=== PATIENT | female | born 1945 | race Caucasian/White ===

== ENCOUNTER 2017-08-16 10:37 | Inpatient (IN) | payer MEDICARE, OTHER ==
[~2017-08-16 10:37] MED LIST: Dermabond Prineo 1 Tube TOP ONE
[2017-08-16] MEDS: Lactated Ringers 1,000 ML IV SCH ×2 (11:33→23:34)
[2017-08-16] MEDS ORDERED: Midazolam 1 MG/ML 2 ML SDV ONE (11:41)
[2017-08-16] MEDS ORDERED: Propofol 200 MG/20 ML SDV ONE ×2 (11:42→14:56)
[2017-08-16] MEDS ORDERED: fentaNYL 100 MCG/2 ML SDV ONE (11:44)
[2017-08-16] MEDS ORDERED: ceFAZolin/Dextrose,Iso-Osmotic 2 GM/50 ML Duplex Bag IV ONE (11:46)
[2017-08-16] MEDS ORDERED: ceFAZolin 2 GM in Premix Bag 1 BAG IV SCH (12:00)
--- NOTE | 2017-08-16 12:24 | PCM.PREANE ---
Preanesthetic Assessment - Anesthesia/Transfusion/Family Hx Anesthesia History: Prior Anesthesia Without Reaction Family History of Anesthesia Reaction: No Transfusion History: Prior Transfusion Without Reaction - Review of Systems General: No Symptoms Pulmonary: No Symptoms Cardiovascular: No Symptoms Gastrointestinal: No Symptoms Neurological: No Symptoms Other: Reports: None - Physical Assessment NPO Status Date: 08/15/17 NPO Status Time: 21:00 O2 Sat by Pulse Oximetry: 94 Respiratory Rate: 15 Vital Signs: Last Vital Signs Temp 36.5 C 08/16/17 11:15 Pulse 72 08/16/17 11:15 Resp 15 08/16/17 11:15 BP 141/73 H 08/16/17 11:15 Pulse Ox 94 L 08/16/17 11:15 Height: 1.68 m Weight: 92.533 kg ASA Class: 2 Mental Status: Alert & Oriented x3 Airway Class: Mallampati = 2 Dentition: Reports: Normal Dentition ROM/Head Extension: Full Lungs: Clear to Auscultation, Normal Respiratory Effort Cardiovascular: Regular Rate, Regular Rhythm - Allergies Allergies/Adverse Reactions: Allergies Allergy/AdvReac Type Severity Reaction Status Date / Time No Known Allergies Allergy Verified 08/11/17 09:33 - Acknowledgements Anesthesia Type Planned: Spinal Pt an Appropriate Candidate for the Planned Anesthesia: Yes Alternatives and Risks of Anesthesia Discussed w Pt/Guardian: Yes Pt/Guardian Understands and Agrees with Anesthesia Plan: Yes PreAnesthesia Questionnaire HEENT History: Reports: Impaired Vision, Other (See Below) Other HEENT History: wears glasses Cardiovascular History: Reports: High Cholesterol Respiratory History: Reports: None Gastrointestinal History: Reports: GERD Genitourinary History: Reports: None SPONGE DIVER History: Reports: None Musculoskeletal History: Reports: Fracture, Osteoarthritis Neurological History: Reports: None Psychiatric History: Reports: Anxiety, Depression Endocrine/Metabolic History: Reports: Obesity/BMI 30+ Hematologic History: Reports: Blood Transfusion(s) Other Hematologic History: blood transfusion after rt arm injury Immunologic History: Reports: None Oncologic (Cancer) History: Reports: None Dermatologic History: Reports: None - Infectious Disease History Infectious Disease History: Reports: Chicken Pox, Measles, Mumps - Past Surgical History Head Surgeries/Procedures: Reports: None HEENT Surgical History: Reports: None Cardiovascular Surgical History: Reports: None Respiratory Surgical History: Reports: None GI Surgical History: Reports: Colonoscopy Female Surgical History: Reports: Hysterectomy Other Female Surgeries/Procedures: hysterectomy with bladder repair Endocrine Surgical History: Reports: None Neurological Surgical History: Reports: None Musculoskeletal Surgical History: Reports: Knee Replacement, Other (See Below) Other Musculoskeletal Surgeries/Procedures:: Skin grafting to right forearm due to injury at work, starla partial knee replacements Dermatological Surgical History: Reports: Skin Graft - SUBSTANCE USE Smoking Status *Q: Never Smoker Second Hand Smoke Exposure: No Days Per Week of Alcohol Use: 0 Recreational Drug Use History: No - HOME MEDS Home Medications: Home Meds Fish Oil/[place]-3 Fatty Acids [Fish Oil] 1 cap PO DAILY 05/02/14 [History] Multivitamin [Multi-Vitamin Daily] 1 tab PO DAILY 05/02/14 [History] Sertraline HCl [Zoloft] 75 tab PO DAILY 05/02/14 [History] atorvaSTATin [Lipitor] 20 tab PO DAILY 05/02/14 [History] Aspirin [Low Dose Aspirin EC] 81 mg PO DAILY 11/22/15 [History] Gluc 2KCl/Chondr/Syd Hy/Hy Ac [Glucosamine & Chondroitin Cap] 1 tab PO ASDIRECTED 08/11/17 [History] Omeprazole [priLOSEC OTC] 20 mg PO DAILY 08/12/17 [History] - CURRENT (IN HOUSE) MEDS Current Meds: Current Medications Cefazolin Sodium/Dextrose 2 gm (/ Premix) 50 mls @ 100 mls/hr IV ONETIME SAL Lactated Ringer's (Ringers, Lactated) 1,000 mls @ 125 mls/hr IV ASDIRECTED [facility] Last Admin: 08/16/17 11:33 Dose: 125 mls/hr Discontinued Medications Cefazolin Sodium/Dextrose (Ancef) Confirm Administered Dose 2 gm IV .STK-MED ONE Stop: 08/16/17 11:47 Fentanyl (Sublimaze) Confirm Administered Dose 100 mcg .ROUTE .STK-MED ONE Stop: 08/16/17 11:45 Midazolam HCl (Versed 1 Mg/Ml) Confirm Administered Dose 6 mg .ROUTE .STK-MED ONE Stop: 08/16/17 11:42 Propofol (Diprivan 20 Ml) Confirm Administered Dose 600 mg .ROUTE .STK-MED ONE Stop: 08/16/17 11:43 Tranexamic Acid (Cyklokapron) 2,000 mg IV ONETIME ONE Stop: 08/16/17 12:01 Tranexamic Acid (Cyklokapron) Confirm Administered Dose 2,000 mg .ROUTE .STK- MED ONE Stop: 08/16/17 07:14
[2017-08-16] MEDS ORDERED: Phenylephrine 1% 10 MG/ML SDV ONE (13:59)
[2017-08-16] MEDS ORDERED: fentaNYL 100 MCG/2 ML SDV IVPUSH PRN (14:12)
[2017-08-16] MEDS ORDERED: Ondansetron 4 MG/2 ML SDV IV PRN (15:20)
--- NOTE | 2017-08-16 15:20 | PCM.OPNOTE ---
- General Post-Op/Procedure Note Date of Surgery/Procedure: 08/16/17 Operative Procedure(s): right anterior total hip arthroplasty Findings: severe OA with labral ossification Pre Op Diagnosis: right hip osteoarthritis Post-Op Diagnosis: same Anesthesia Technique: Moderate Sedation, Spinal Primary Surgeon: Poncho Olivares Mai Dolphin Researcher: Mimi Crenshaw Pathology: femoral head EBL in mLs: 300 Complications: none Condition: Good Free Text/Narrative:: Intake & Output 08/16/17 08/16/17 08/16/17 06:59 14:59 22:59 Output Total 250 Balance -250
[2017-08-16] MEDS ORDERED: diphenhydrAMINE 25 MG Cap PO PRN (15:21)
[2017-08-16] MEDS ORDERED: Bisacodyl 10 MG Supp RECTAL PRN (15:21)
[2017-08-16] MEDS ORDERED: Aluminum Hydroxide/Magnesium Hydroxide/Simethicone Susp 30 ML Cup PO PRN (15:21)
[2017-08-16] MEDS ORDERED: Morphine 4 MG/ML Syringe IVPUSH PRN (15:21)
--- NOTE | 2017-08-16 15:50 | PCM48HPAN ---
Post Anesthesia Note - EVALUATION WITHIN 48HRS OF ANESTHETIC Vital Signs in Normal Range: Yes Patient Participated in Evaluation: Yes Respiratory Function Stable: Yes Airway Patent: Yes Cardiovascular Function Stable: Yes Hydration Status Stable: Yes Pain Control Satisfactory: Yes Nausea and Vomiting Control Satisfactory: Yes Mental Status Recovered: Yes Resp Rate: 15
[2017-08-16] MEDS ORDERED: Omeprazole 20 MG Cap.CR PO SCH (17:00)
[2017-08-16] MEDS: Acetaminophen/HYDROcodone 325-5 MG Tab PO PRN ×2 (18:14→22:15)
[2017-08-16] MEDS: Ketorolac 30 MG/ML SDV IVPUSH PRN (19:06)
[2017-08-16] MEDS: Docusate Sodium 100 MG Cap PO SCH (20:31)
[2017-08-16] MEDS: ceFAZolin 2 GM in Premix Bag 1 BAG IV SCH (20:33)
--- NOTE | 2017-08-16 22:04 | OR ---
SURGEON: Poncho Guillen MD DATE OF PROCEDURE: 08/16/2017 SOCIAL HUMAN SERVICES ASSISTANTS: Mimi Crenshaw PA-C. PREOPERATIVE DIAGNOSIS: Right hip osteoarthritis. POSTOPERATIVE DIAGNOSIS: Right hip osteoarthritis. OPERATION PERFORMED: Right anterior total hip arthroplasty. ANESTHESIA: Spinal with sedation. COMPLICATION: None. ESTIMATED BLOOD LOSS: 300 mL. SPECIMENS: Femoral head. COMPLICATIONS: None. IMPLANTS: Tip Continuum trabecular metal shell with cluster holes, 56 mm outer diameter; one 6.5 x 25 mm length bone screw; Vivacit-E neutral liner 36 mm inner diameter; Fitmore hip stem, uncemented; B extended offset, size 5; Biolox delta ceramic femoral head 36 mm inner diameter; zero neck length. INDICATIONS: The patient is a 71-year-old female with severe arthritis of right hip. She wished to undergo hip replacement. She understands the risks, benefits, alternatives, complications of procedure including to infection, neurovascular injury, continued pain, DVT, PE, stroke, IN, leg-length discrepancy, fracture, dislocation, and she wished to proceed. DESCRIPTION OF PROCEDURE: The patient was seen in the preoperative area. Operative site was marked. The patient was transferred to the operating room, spinal anesthetic was given and a Celis was placed. She was placed supine on the Mcdonald table and sedation was given. Her legs were placed in leg bars with narrow perineal post. Right hip was prepped and draped in the usual sterile fashion using alcohol followed by ChloraPrep. A formal time-out was taken, identifying the correct patient, procedure, and extremity. She received preoperative Ancef and also 2 g of TXA. An 8-cm incision starting just lateral to the ASIS going obliquely down the femur was made. Dissection was carried down to subcutaneous tissues. Hemostasis was obtained. The fascia overlying the TFL, lateral to the lateral femoral cutaneous nerve was opened. The interval between the TFL and sartorius and deep between the abductors and rectus was opened. The vastus lateralis fascia was opened, and the anterior vessels were coagulated. The indirect head of the rectus was released. the capsule was held and tagged with two fiber wires. A deep Phil retractor was placed and the capsule was placed in the hip joint. Neck was kept in saddle region, 1 cm above the lesser trochanter and the head was removed. She had severe arthritis, incomplete labral ossification noted. There was essentially no labral remnants, but the remnants were removed. Head measured about 50 mm. Sequential reaming from 49 up to 55 mm was made. I was unable to medialize very much due to the patient's profunda. This was done under fluoroscopic control, up to 55 mm in the bed to shell with cluster holes, 56 mm outer diameter, was impacted in 45 degrees of abduction, 10 degrees of anteversion. Screw hole. Once straight superior bone screw was placed after drilling 25 mm in length. A neutral liner was impacted. After irrigating and cleaning the hip out, it was then externally rotated, abducted, and extended superior capsule obturator internus and piriformis released. Central canal finder was utilized, and the hip was sequentially broached from a starter rasp with the size B 4, this was trial reduced with a zero neck length. Standard offset from the rotating to the opposite side showed offset to be decreased for 5 mm and leg length to be essentially equal. There was some Shuck and was stable range of motion. Hip was then dislocated. It was broached up to size 5, there is some increased ectopy performed based on the x-ray. This went to the same position and then a B5 extended offset Fitmore hip stem was impacted following the ute version, it was trial reduced with zero neck length. Printed overlay technique showed equal leg length and offset to the opposite side, and then the hip was dislocated. The final ceramic head was impacted with zero neck length, 36 mm diameter, and the hip was relocated. The two tag sutures were tied together. The wound was irrigated. The fascia was closed with #1 Vicryl. Subcutaneous tissues with 2-0 Quill. Skin was closed with a running 4-0 Monocryl Dermabond tape. Aquacel dressing was placed. The patient was transferred to recovery room in stable condition. Sponge and needle counts were correct at the end of the case. There were no complications. PLAN: The patient will follow postop rehab protocol with aspirin for DVT prophylaxis, and weightbearing as tolerated. DAYSI / EVELYN /[id number]
[2017-08-17] MEDS: Ketorolac 30 MG/ML SDV IVPUSH PRN (03:49)
[2017-08-17] MEDS: ceFAZolin 2 GM in Premix Bag 1 BAG IV SCH (05:37)
[2017-08-17] MEDS ORDERED: Sodium Chloride 0.9% 10 ML Syringe FLUSH PRN (07:31)
[2017-08-17] MEDS ORDERED: Sodium Chloride 0.9% 2.5 ML Syringe FLUSH PRN (07:31)
--- NOTE | 2017-08-17 07:31 | PCM.SN ---
- Free Text/Narrative Note: S: doing well. pain is well controlled. discomfort just from sitting. has walked to doorway. tolerating PO. no other issues O: afebrile, vital signs stable dressing clean/dry/intact with no drainage or erythema no swelling in thigh or distally with normal motor/sensation/pulses distally A/P: POD #1 Right KHALIDA - full weight bearing with walker - SCDs and aspirin for DVT prophylaxis - hgb pending - remove de jesus and stop IV fluids - likely home later today if does well.
[2017-08-17] MEDS: Acetaminophen/HYDROcodone 325-5 MG Tab PO PRN ×2 (08:38→13:07)
[2017-08-17] MEDS: Docusate Sodium 100 MG Cap PO SCH (08:42)
--- NOTE | 2017-08-17 08:51 | CR ---
EXAMINATION: Right hip HISTORY: Arthroplasty COMPARISON: 10/20/2016 TECHNIQUE: 3 images provided FINDINGS/IMPRESSION: Operative control films demonstrate placement of right total hip hardware in goo d position and alignment. Moderate degenerative changes noted within the adjacent left hip.
[2017-08-17] MEDS ORDERED: Sertraline 50 MG Tab PO SCH (09:00)
[2017-08-17] MEDS ORDERED: atorvaSTATin 20 MG Tab PO SCH (09:00)
[2017-08-17] MEDS ORDERED: Multivitamin Tab PO SCH (09:00)
[2017-08-17] MEDS ORDERED: Aspirin 325 MG Tab.EC PO SCH (09:00)
[2017-08-17] MEDS ORDERED: Fish Oil/Omega-3 Fatty Acids 1 Gm Cap PO SCH (09:00)
[2017-08-17 11:46] VITALS: BP 99/51
--- NOTE | 2017-08-18 07:28 | PCM.DCSUM1 ---
Discharge Summary - Hospital Course Brief History: admitted for elective right total hip arthroplasty - Discharge Data Discharge Date: 08/17/17 Discharge Disposition: Home, Self-Care 01 Condition: Good - Patient Summary/Data Operative Procedure(s) Performed: right anterior total hip arthroplasty Consults: Consultations 08/16/17 15:20 PT Evaluation and Treatment [CONS] Routine Hospital Course: admitted after surgery, no issues, discharged on POD #1 - Patient Instructions Diet: Usual Diet as Tolerated Activity: Apply Ice, As Tolerated, Full Weight Bearing Driving: Do Not Drive Showering/Bathing: May Shower Wound/Incision Care: Do NOT Change Dressing Notify Provider of: Fever, Swelling and Redness, Drainage - Discharge Plan Home Medications: Home Meds Fish Oil/[place]-3 Fatty Acids [Fish Oil] 1 cap PO DAILY 05/02/14 [History] Multivitamin [Multi-Vitamin Daily] 1 tab PO DAILY 05/02/14 [History] Sertraline HCl [Zoloft] 75 tab PO DAILY 05/02/14 [History] atorvaSTATin [Lipitor] 20 tab PO DAILY 05/02/14 [History] Aspirin [Low Dose Aspirin EC] 81 mg PO DAILY 11/22/15 [History] Gluc 2KCl/Chondr/Syd Hy/Hy Ac [Glucosamine & Chondroitin Cap] 1 tab PO ASDIRECTED 08/11/17 [History] Omeprazole [priLOSEC OTC] 20 mg PO DAILY 08/12/17 [History] Patient Handouts: Acetaminophen; Hydrocodone tablets or capsules, Total Hip Replacement, [id number], Aspirin, ASA oral tablets, Docusate capsules Referrals: Mimi Crenshaw PA [Physician Glass Cleaner] - 08/26/17 9:15 am - Discharge Summary/Plan Comment DC Time >30 min.: No - Patient Data Vitals - Most Recent: Last Vital Signs Temp 36.9 C 08/17/17 11:45 Pulse 79 08/17/17 11:45 Resp 18 08/17/17 11:45 BP 99/51 L 08/17/17 11:45 Pulse Ox 96 08/17/17 11:45 Weight - Most Recent: 91.5 kg I&O - Last 24 hours: Intake & Output 08/17/17 08/18/17 08/18/17 22:59 06:59 14:59 Intake Total 800 Output Total 600 Balance 200 Med Orders - Current: Current Medications Discontinued Medications Hydrocodone Bitart/Acetaminophen ([place] 325-5 Mg) 1 - 2 tab PO Q4H PRN PRN Reason: Pain Last Admin: 08/17/17 13:07 Dose: 2 tab Al Hydroxide/Mg Hydroxide (Mag-Al Plus) 30 ml PO Q4H PRN PRN Reason: indigestion Aspirin (Ecotrin) 325 mg PO BID [facility] Last Admin: 08/17/17 08:42 Dose: 325 mg Atorvastatin Calcium (Lipitor) 20 mg PO DAILY [facility] Last Admin: 08/17/17 08:42 Dose: 20 mg Bisacodyl (Dulcolax) 10 mg RECTAL DAILY PRN PRN Reason: Constipation Cefazolin Sodium/Dextrose (Ancef) Confirm Administered Dose 2 gm IV .STK-MED ONE Stop: 08/16/17 11:47 Diphenhydramine HCl (Benadryl) 25 - 50 mg PO Q6H PRN PRN Reason: Itching Docusate Sodium (Colace) 100 mg PO BID [facility] Last Admin: 08/17/17 08:42 Dose: 100 mg Fentanyl (Sublimaze) Confirm Administered Dose 100 mcg .ROUTE .STK-MED ONE Stop: 08/16/17 11:45 Fentanyl (Sublimaze) 50 mcg IVPUSH Q5M PRN PRN Reason: Pain (moderate 4-6) Stop: 08/16/17 17:00 Fish Oil (Fish Oil) 1 gm PO DAILY [facility] Last Admin: 08/17/17 08:42 Dose: 1 gm Cefazolin Sodium/Dextrose 2 gm (/ Premix) 50 mls @ 100 mls/hr IV ONETIME [facility] Lactated Ringer's (Ringers, Lactated) 1,000 mls @ 125 mls/hr IV ASDIRECTED [facility] Last Admin: 08/16/17 23:34 Dose: 125 mls/hr Cefazolin Sodium/Dextrose 2 gm (/ Premix) 50 mls @ 100 mls/hr IV Q8H [facility] Stop: 08/17/17 05:59 Last Admin: 08/17/17 05:37 Dose: 100 mls/hr Ketorolac Tromethamine (Toradol) 30 mg IVPUSH Q6H PRN PRN Reason: Pain Stop: 08/17/17 05:00 Last Admin: 08/17/17 03:49 Dose: 30 mg Midazolam HCl (Versed 1 Mg/Ml) Confirm Administered Dose 6 mg .ROUTE .STK-MED ONE Stop: 08/16/17 11:42 Morphine Sulfate (Morphine) 1 - 3 mg IVPUSH Q3H PRN PRN Reason: Pain Last Admin: 08/16/17 23:39 Dose: 2 mg Multivitamins/Minerals/Vitamin C (Tab-A-Jessika) 1 tab PO DAILY [facility] Last Admin: 08/17/17 08:42 Dose: 1 tab Octyl Cyanoacrylate (Dermabond Prineo) 1 applic TOP .STK-MED ONE Stop: 08/16/17 07:35 Omeprazole (Omeprazole) 20 mg PO DAILY@1700 [facility] Last Admin: 08/16/17 17:29 Dose: 20 mg Ondansetron HCl (Zofran) 4 mg IV Q6HR PRN PRN Reason: NAUSEA/VOMITING Phenylephrine HCl ([place]-Synephrine) Confirm Administered Dose 10 mg .ROUTE .STK- MED ONE Stop: 08/16/17 14:00 Propofol (Diprivan 20 Ml) Confirm Administered Dose 600 mg .ROUTE .STK-MED ONE Stop: 08/16/17 11:43 Propofol (Diprivan 20 Ml) Confirm Administered Dose 200 mg .ROUTE .STK-MED ONE Stop: 08/16/17 14:57 Sertraline HCl (Zoloft) 50 mg PO DAILY [facility] Last Admin: 08/17/17 08:42 Dose: 50 mg Sodium Chloride (Saline Flush) 10 ml FLUSH ASDIRECTED PRN PRN Reason: Keep Vein Open Sodium Chloride (Saline Flush) 2.5 ml FLUSH ASDIRECTED PRN PRN Reason: Keep Vein Open Tranexamic Acid (Cyklokapron) 2,000 mg IV ONETIME ONE Stop: 08/16/17 12:01 Last Admin: 08/16/17 16:56 Dose: Not Given Tranexamic Acid (Cyklokapron) Confirm Administered Dose 2,000 mg .ROUTE .STK- MED ONE Stop: 08/16/17 07:14
== END 2017-08-17 15:37 | disposition home or self-care (01) | DRG 470 ==
LOC: MW.MS 10:37
PROVIDERS: ADMIT Orthopaedic Surgery; ATTEND Orthopaedic Surgery
PROC: 0SR903A Replacement of Right Hip Joint with Ceramic Synthetic Substitute, Uncemented, Open Approach (ICD-10-PCS; principal; 2017-08-16)
DX: M16.11 Unilateral primary osteoarthritis, right hip (principal)
CPT/HCPCS: 36415; 76000; 76000-26; 86850; 86900; 86901; 97110-GP; 97116-GP; 97161-GP; A9270-GY; C1713; C1776; J0690; J1885; J2250; J2270; J2370; J2704; J3010; J7120

== ENCOUNTER 2022-03-19 10:35 | Emergency (ER) | payer MEDICARE, OTHER ==
[2022-03-19 13:03] LABS: CARBON DIOXIDE,CO2 28.5 mmol/L (21.0-32.0); POTASSIUM,K 4.3 mmol/L (3.5-5.1)
[2022-03-19 19:59] VITALS: BP 145/86; PULSE 79
== END 2022-03-19 15:16 | disposition home or self-care (01) ==
LOC: MW.ED 10:35
DX: R53.83 Other fatigue (principal); E78.00 Pure hypercholesterolemia, unspecified; K21.9 Gastro-esophageal reflux disease without esophagitis; E66.9 Obesity, unspecified; Z68.32 Body mass index [BMI] 32.0-32.9, adult; Z79.82 Long term (current) use of aspirin; Z79.899 Other long term (current) drug therapy; Z20.822 Contact with and (suspected) exposure to COVID-19
CPT/HCPCS: 36415; 80053; 84484; 85027; 93005; 99283; U0002

== ENCOUNTER 2023-08-23 10:01 | Day surgery (SDC) | payer MEDICARE ==
[~2023-08-23 10:01] MED LIST changes: -Dermabond Prineo 1 Tube TOP ONE; +Sodium Chloride 0.9% 10 ML Syringe FLUSH PRN; +Sodium Chloride 0.9% 2.5 ML Syringe FLUSH PRN; +Sodium Chloride 0.9% 20 ML SDV IV PRN
[2023-08-23] MEDS: Lactated Ringers 1,000 ML IV SCH (10:27)
[2023-08-23] MEDS ORDERED: propofoL 50 ML ONE (11:35)
[2023-08-23 13:48] VITALS: BP 133/63; PULSE 98
== END 2023-08-23 13:10 | disposition home or self-care (01) ==
LOC: MW.SDS 10:01
PROVIDERS: ATTEND Surgery
DX: D12.2 Benign neoplasm of ascending colon (principal); F32.A Depression, unspecified; F41.9 Anxiety disorder, unspecified; E78.00 Pure hypercholesterolemia, unspecified; Z79.82 Long term (current) use of aspirin; Z79.899 Other long term (current) drug therapy
CPT/HCPCS: 45380; 88305; J2704; J7120; 00811; 99100